=== PATIENT | female | born 1965 | race Caucasian/White ===

== ENCOUNTER 2018-03-20 09:01 | Day surgery (SDC) | payer BC ==
[2018-03-20 09:31] VITALS: BMI 21.4
[2018-03-20] MEDS ORDERED: PROPOFOL 20 ML ONE ×2 (09:34)
[2018-03-20 12:25] VITALS: TEMP 97.6
[2018-03-20 13:10] VITALS: BP 124/78; PULSE 78
--- NOTE | 2018-03-21 15:34 | PATH ---
Surgical Pathology Report Patient Name: JANE PARKER [facility]. Rec. #: [id number] /Age/Gender: 1965 (Age: 53) / F Account: [id number] Location: [facility] Taken: 03/20/2018 Received: 03/20/2018 Reported: 03/21/2018 Physicians: Devaughn Wheeler M.D. Specimen(s) Received A: BX DUODENUM B: BX ANTRUM Clinical History Gastritis history of colonic polyps, rule out celiac disease Final Diagnosis A. DUODENUM, BIOPSY: DUODENAL MUCOSA WITH NO DIAGNOSTIC ABNORMALITIES. NO HISTOLOGIC EVIDENCE OF CELIAC DISEASE. B. ANTRUM, BIOPSY: GASTRIC MUCOSA WITH MILD CHRONIC INFLAMMATION. IMMUNOSTAIN IS NEGATIVE FOR H. PYLORI ORGANISMS. Electronically Signed Brandan Ford M.D. Gross Description A. Received in formalin, labeled "duodenum" are 2 mai, irregular portions of soft tissue measuring 0.4 cm. in greatest dimension. The specimens are submitted in toto in one cassette. B. Received in formalin, labeled "antrum" are 2 mai, irregular portions of soft tissue measuring 0.4 cm. in greatest dimension. The specimens are submitted in toto in one cassette. __ KWS/03/21/2018 sulki/03/21/2018
== END 2018-03-20 13:15 | disposition home or self-care (01) ==
LOC: FASU-ENDO 09:01
PROVIDERS: ATTEND Internal Medicine Gastroenterology
PROC: 0DB68ZX Excision of Stomach, Via Natural or Artificial Opening Endoscopic, Diagnostic (ICD-10-PCS; 2018-03-20)
PROC: 0DJD8ZZ Inspection of Lower Intestinal Tract, Via Natural or Artificial Opening Endoscopic (ICD-10-PCS; principal; 2018-03-20 10:46)
PROC: 0DB98ZX Excision of Duodenum, Via Natural or Artificial Opening Endoscopic, Diagnostic (ICD-10-PCS; 2018-03-20 10:46)
DX: Z12.11 Encounter for screening for malignant neoplasm of colon (principal); K29.50 Unspecified chronic gastritis without bleeding; R10.13 Epigastric pain
CPT/HCPCS: 88305-TC; 88342-TC

== ENCOUNTER 2024-06-28 07:58 | Day surgery (SDC) | payer BC ==
[2024-06-26 11:59] VITALS: BMI 24.1
[2024-06-28 09:38] VITALS: TEMP 97
[2024-06-28 09:40] VITALS: BP 108/72; PULSE 84; RESP 19
== END 2024-06-28 09:41 | disposition home or self-care (01) ==
LOC: FASU-ENDO 07:58
PROVIDERS: ATTEND Internal Medicine Gastroenterology
PROC: 0DB68ZX Excision of Stomach, Via Natural or Artificial Opening Endoscopic, Diagnostic (ICD-10-PCS; 2024-06-28)
PROC: 0DB98ZX Excision of Duodenum, Via Natural or Artificial Opening Endoscopic, Diagnostic (ICD-10-PCS; principal; 2024-06-28 08:48)
DX: K29.50 Unspecified chronic gastritis without bleeding (principal)
CPT/HCPCS: 88305-TC; 88342-TC